=== PATIENT | male | born 1990 | race Two or more races ===

== ENCOUNTER 2017-11-19 18:04 | Emergency (ER) | payer MEDICAID ==
[~2017-11-19] VITALS: Ht 182.9 cm; Wt 81.6 kg
[2017-11-19 18:10] VITALS: BP 127/77
[2017-11-19] MEDS ORDERED: IBUPROFEN 600 MG TAB PO ONE (19:30)
== END 2017-11-19 22:06 ==
LOC: ER 18:11
DX: S16.1XXA Strain of muscle, fascia and tendon at neck level, initial encounter (principal); S29.012A Strain of muscle and tendon of back wall of thorax, initial encounter; S00.83XA Contusion of other part of head, initial encounter; S50.811A Abrasion of right forearm, initial encounter; F17.210 Nicotine dependence, cigarettes, uncomplicated; V49.3XXA Car occupant (driver) (passenger) injured in unspecified nontraffic accident, initial encounter; Y93.89 Activity, other specified; Y92.488 Other paved roadways as the place of occurrence of the external cause; Y99.8 Other external cause status
CPT/HCPCS: 70450; 72125; 72128